=== PATIENT | male | born 1945 | race Caucasian/White ===

== ENCOUNTER → 2023-12-06 07:35 | Outpatient (REF) | payer MEDICARE, OTHER, SELFPAY | LOC: HWRAD 07:35 | PROVIDERS: ATTENDING PHYSICIAN Family Medicine | DX: Z87.891 Personal history of nicotine dependence (principal) | CPT/HCPCS: 71271 ==

== ENCOUNTER 2024-11-13 11:51 | Emergency (ER) | payer MEDICARE, OTHER, SELFPAY ==
[2024-11-13 11:52] VITALS: BP 121/73; BMI 31.2
[2024-11-13 11:54] VITALS: BP 139/92
[2024-11-13 12:00] VITALS: BP 121/73
[2024-11-13 12:22] LABS: Hematocrit 38.0 % (39.0-52.0); Hemoglobin 12.9 g/dL (13.0-18.0); Mean Corp Hgb Conc. 33.9 g/dL (33.0-37.0); Mean Corpuscular Volume 92.7 fL (80.0-94.0); Platelet Count 174 10^3/uL (130-400); Red Cell Dist. Width 14.9 % (11.5-14.5)
--- NOTE | 2024-11-13 12:22 | ED.GENMED ---
History of Present Illness
<Jeff Stockton MD, Resident - Last Filed: 11/13/24 16:18>
General
Chief Complaint: Chest Pain
Time Seen by Provider: 11/13/24 11:59
History of Present Illness
History of Present Illness:
Patient is a 79-year-old male who presents to the emergency department with complaints of right hip pain with right rib pain following a fall at [facility]. He was in his normal state of health prior to the fall when he slipped on a slick
floor at [facility] while shopping. he did not have any dizziness, shortness of breath, or chest tightness that led to the fall. He states that the fall was caused by him slipping on a slick floor. He was able to complete his shopping and proceeded to
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 Unfortunately as he continued to shop at those stores but was once a annoying right hip pain grew into a sharp acute pain that stopped him from walking easily. By the time he reached home he
was unable to make it through the front door and his had to help him get inside. Since his arrival at home he has been bedridden and has used a plan to go to the bathroom. He also has had a reduced appetite since the pain started. He has a
normal range of motion in his right lower leg and left lower leg. Normal sensation preserved throughout the legs bilaterally. Pain on any movement of the right lower leg. Patient rates his pain as a 7 out of 10.
Past History
<Jeff Stockton MD, Resident - Last Filed: 11/13/24 16:18>
Past History
ED Past Medical History: Other ( former smoker)
ED Past Surgical History: Other ( Bilateral shoulder replacement)
Patient has exhibited threatening behavior?: No
Social History
Tobacco: Former smoker
Alcohol: None
Drug: None
Personal:
Living: with family
Employment: Retired
Review of Systems
<Jeff Stockton MD, Resident - Last Filed: 11/13/24 16:18>
Review of Systems
Constitutional: Reports no symptoms
EENT: Reports no symptoms
Respiratory: Reports no symptoms
Cardiac: Reports chest pain ( along the right side of the chest around the 8th-10th ribs)
ABD/GI: Reports no symptoms
: Reports no symptoms
Musculoskeletal: Reports joint pain ( right hip pain that radiates to the medial thigh of R leg)
Skin: Reports no symptoms
Neurological: Reports no symptoms
Endocrine: Reports no symptoms
Hematologic/Lymphatic: Reports no symptoms
Psychiatric: Reports no symptoms
Phy Exam
<Jeff Stockton MD, Resident - Last Filed: 11/13/24 16:18>
General Physical Exam
General Presentation: well appearing and mild distress
General age: appears stated age
General Skin: warm and dry
General Habitus: normal and elderly
General Mental: alert
General Hydration: appears well hydrated
Cardiovascular Exam
Cardiovascular Exam: regular rate/rhythm, no edema, no gallop, no JVD and no murmur
Pulmonary Exam
Pulmonary Exam: lungs clear, no respiratory distress, no rales, chest non tender, no crackles, no rhonchi, no stridor, no cough and other (Slight wheezing on R lower lobe)
Musculoskeletal Exam
Musculoskeletal Exam: full ROM
Skin Exam
Skin Exam: normal color, warm/dry and no petechia
Psychiatric Exam
Psychiatric Exam: normal mood/affect
Scores
<Jeff Stockton MD, Resident - Last Filed: 11/13/24 16:18>
Heart Score for Chest Pain Patients
STEMI patient?: Not applicable
Course
<Jeff Stockton MD, Resident - Last Filed: 11/13/24 16:18>
Orders/Labs/Results
Orders:
Orders
11/13/24 11:59
Electrocardiogram (*1) Urgent
Reason for Study: Chest Pain
EKG- Treatment ONCE
11/13/24 12:10
Complete Blood Count/No Diff Urgent
Comprehensive Metabolic Panel Urgent
NT-proBNP Urgent
Troponin I Urgent
11/13/24 12:49
Hip, Right 2-3 Views [CR Hip - RT w/wo Pel 2-3 Vw*] Urgent
Comment:
Reason For Exam: S/P fall with R hip pain. unable to bear weight
Include a pelvis x-ray?: Yes
Ribs, Right 3 View W/PA Chest [CR Ribs-right 3 Vw W/pa Chest*] Urgent
Comment:
Reason For Exam: Fall on right side with acute right rib pain
11/13/24 12:52
Acetaminophen [Tylenol Oral Solution] 650 mg PO NOW STA
Lidocaine [Lidocaine 4% Patch] 1 patch TOPICAL NOW ONE
Apply Lidocaine patch(s) to:: Right rip area
11/13/24 12:54
Acetaminophen [Tylenol] 1,000 mg PO NOW ONE
11/13/24 14:24
Walker [Treatment- Walker] ONCE
11/13/24 14:25
Ambulate Patient-Treatment ONCE
Spirometry, Incentive [Rx Incentive Spirometry] [RESP] Urgent
Frequency: q1h while awake
11/13/24 15:20
CT Pelvis W/o Iv Contrast Urgent
Comment:
Reason For Exam: Right hip pain. XR suspicious for pelvic fracture
11/13/24 15:21
Ibuprofen [Motrin] 800 mg PO NOW ONE
Abnormal Lab Results
11/13/24
12:10
RBC 4.10 L 10^6/uL
(4.70-6.10)
Hgb 12.9 L g/dL
(13.0-18.0)
Hct 38.0 L %
(39.0-52.0)
MCH 31.5 H pg
(27.0-31.0)
RDW 14.9 H %
(11.5-14.5)
Sodium 134 L mmol/L
(135-145)
Creatinine 0.6 L mg/dL
(0.7-1.3)
Glucose 119 H mg/dl
(70-99)
11/13/24 12:10
11/13/24 12:10
Vital Signs
Initial and Last Documented VS:
Initial Vital Signs
Temp Pulse Resp BP Pulse Ox
98.4 F 70 16 121/73 98
11/13/24 11:52 11/13/24 11:52 11/13/24 11:52 11/13/24 11:52 11/13/24 11:52
Last Documented Vital Signs
Temp Pulse Resp BP Pulse Ox
98 F 71 16 118/68 100
11/13/24 14:38 11/13/24 14:38 11/13/24 14:38 11/13/24 14:38 11/13/24 14:38
<Alycia Mcbride, DO - Last Filed: 11/13/24 16:54>
Orders/Labs/Results
Orders:
Orders
11/13/24 11:59
Electrocardiogram (*1) Urgent
Reason for Study: Chest Pain
EKG- Treatment ONCE
11/13/24 12:10
Complete Blood Count/No Diff Urgent
Comprehensive Metabolic Panel Urgent
NT-proBNP Urgent
Troponin I Urgent
11/13/24 12:49
Hip, Right 2-3 Views [CR Hip - RT w/wo Pel 2-3 Vw*] Urgent
Comment:
Reason For Exam: S/P fall with R hip pain. unable to bear weight
Include a pelvis x-ray?: Yes
Ribs, Right 3 View W/PA Chest [CR Ribs-right 3 Vw W/pa Chest*] Urgent
Comment:
Reason For Exam: Fall on right side with acute right rib pain
11/13/24 12:52
Acetaminophen [Tylenol Oral Solution] 650 mg PO NOW STA
Lidocaine [Lidocaine 4% Patch] 1 patch TOPICAL NOW ONE
Apply Lidocaine patch(s) to:: Right rip area
11/13/24 12:54
Acetaminophen [Tylenol] 1,000 mg PO NOW ONE
11/13/24 14:24
Walker [Treatment- Walker] ONCE
11/13/24 14:25
Ambulate Patient-Treatment ONCE
Spirometry, Incentive [Rx Incentive Spirometry] [RESP] Urgent
Frequency: q1h while awake
11/13/24 15:20
CT Pelvis W/o Iv Contrast Urgent
Comment:
Reason For Exam: Right hip pain. XR suspicious for pelvic fracture
11/13/24 15:21
Ibuprofen [Motrin] 800 mg PO NOW ONE
Abnormal Lab Results
11/13/24
12:10
RBC 4.10 L 10^6/uL
(4.70-6.10)
Hgb 12.9 L g/dL
(13.0-18.0)
Hct 38.0 L %
(39.0-52.0)
MCH 31.5 H pg
(27.0-31.0)
RDW 14.9 H %
(11.5-14.5)
Sodium 134 L mmol/L
(135-145)
Creatinine 0.6 L mg/dL
(0.7-1.3)
Glucose 119 H mg/dl
(70-99)
11/13/24 12:10
11/13/24 12:10
Vital Signs
Initial and Last Documented VS:
Initial Vital Signs
Temp Pulse Resp BP Pulse Ox
98.4 F 70 16 121/73 98
11/13/24 11:52 11/13/24 11:52 11/13/24 11:52 11/13/24 11:52 11/13/24 11:52
Last Documented Vital Signs
Temp Pulse Resp BP Pulse Ox
98 F 71 16 118/68 100
11/13/24 14:38 11/13/24 14:38 11/13/24 14:38 11/13/24 14:38 11/13/24 14:38
Comment
Comment:
I reviewed radiology interpretation of CT pelvis IMPRESSION:
Right superior and inferior pubic rami fractures as described.
<Jeff Stockton MD, Resident - Last Filed: 11/13/24 16:18>
*Pulse Oximetry
SaO2: 98
Oxygen Mode of Delivery: Room air
Patient hypoxic: no
*Critical Care Note
Total Time (30-74mins, 75-104mins- exclusive of procedures): Not Applicable
<Jeff Sotckton MD, Resident - Last Filed: 11/13/24 16:18>
Update Note
Update Note:
Problem List:
Right-sided chest pain
right hip pain
inability to bear weight on the right side
hypertension
bilateral shoulder replacement
obesity
nicotine dependence in remission
Plan:
EKG
CBC and CMP
proBNP
troponins
x-ray right hip
x-ray right ribs
acetaminophen and lidocaine for analgesia
Differential Diagnoses:
closed fracture of the right rib
right-sided pelvic fracture
right femur fracture
pneumothorax/hemothorax
CHF
cardiac arrhythmia
Radiology:
- Hip x-ray conducted on 11/13/2024:
No radiographically demonstrable right femoral head or neck fracture. No dislocation.
Possible subtle pelvic fractures. Recommend further evaluation with follow-up CT.
- Ribs with chest x-ray conducted on 11/13/2024:
Minimally displaced anterolateral right eighth rib fracture. No pneumothorax, pleural effusion, or acute cardiopulmonary process.
- Pelvis CT without contrast conducted on 11/13/2024:
EKG: Normal sinus rhythm, normal EKG
Labs:
CBC unremarkable
CMP unremarkable
troponin 0.012 which is within normal limits
proBNP within normal limits
Updates:
patient given acetaminophen and lidocaine for analgesia. Unfortunately patient still continues to experience pain. Motrin given.
Radiology recommends follow-up CT of the pelvis in order to rule out subtle pelvic fractures. CT of the pelvis ordered for further evaluation
tentative plan is discharge with outpatient follow-up with orthopedics. patient can use a walker to ambulate. and patient should use incentive spirometry
My preliminary read of pelvic CT shows a fracture of the inferior pubic rami on the Right side. Radiology read pending.
patient should follow-up with orthopedics within 2 to 3 days after discharge. Patient should follow-up with his primary care provider within 1 week of discharge.
Patient would like to be discharged. There are no barriers that would impede the patient from being safely discharged at the present time.
ED Attending Note
<Jeff Stockton MD, Resident - Last Filed: 11/13/24 16:18>
-
Portions of this chart may have been created with voice recognition software.� Occasional wrong word or��sound alike� substitutions may have occurred due to the inherent limitations of voice recognition software.
<Alycia Mcbride DO - Last Filed: 11/13/24 16:54>
ED Attending Note
Patient seen and examined by attending physician: Yes
I performed the substantive portion of visit, reviewed & personally made and approve the management plan that is documented in note by myself or AALIYAH.: Yes
I performed a history and physical exam of patient and discussed management with resident, I reviewed resident's note and agree with documented findings and plan of care.: Yes
ED Attending Note:
79-year-old male presents to the ER for evaluation of rib and hip pain after he tripped and fell in the grocery store yesterday. No reported head strike. He is not on any blood thinners. He denies paresthesias or change in vision. He has been
eating and drinking without any difficulty. He denies any feeling of shortness of breath or abdominal discomfort. He was able to ambulate after the injury but has felt worsening pain and cramping in his hip prompting visit to the ER today. Vital
signs reviewed, patient is awake, alert, appears in no acute distress, conjunctiva pink, mucous membranes moist, heart regular rate and rhythm without murmurs or ectopy, lungs are clear to auscultation without wheezes rales or rhonchi, no abnormal
chest wall excursion, pain is reproducible on palpation over right lower lateral ribs, no crepitus, abdomen is soft and nontender, pelvis is stable to rock, mild pain on palpation along right inguinal ligament, no distal edema, 2+ DP pulses present
symmetric, GCS is 15.
I independently viewed and interpreted rib series showing isolated rib fracture rib #11, no pneumothorax. I also independently viewed and interpreted x-rays of right hip showing an inferior pubic ramus fracture only.
I discussed with patient and feeling over present at bedside my interpretation of x-rays and concern for pubic ramus fracture along with rib fracture of at least 1 if not 2 ribs. No pneumothorax. I discussed with him use of incentive spirometry,
Tylenol with ibuprofen, walker and benefit of follow-up with orthopedics. Would await formal radiology interpretation prior to discharge. Will trial ambulation with a walker. Patient and family present bedside agree with plan at current.
Discharge Plan
Departure
Patient Disposition: Home (Routine Discharge)
Date of Disposition: 11/13/24
Time of Disposition: 16:16
Patient with high blood pressure during this ER visit?: No
Discharge Problem:
Closed pelvic fracture, Fracture of rib
Instructions: How to use a walker, Fall Prevention for Older Adults
Prescriptions:
No Action
multivitamin Tablet
1 tab PO DAILY
meloxicam 15 mg tablet
15 mg PO DAILY Qty: 14 0RF
Rx Instructions:
take with food
post-op
famotidine 20 mg tablet
20 mg PO HS Qty: 30 0RF
Rx Instructions:
post-op
dexamethasone 4 mg tablet
4 mg PO BID Qty: 6 0RF
Rx Instructions:
take with food
post-op use only
mupirocin 2 % Ointment
1 applic TOPICAL BID
Patient Comments:
Patient started this treatment on 05/22/22 in the morning.
acetaminophen [Acetaminophen Extra Strength] 500 mg tablet
1,000 mg PO Q6H Qty: 30 0RF
Rx Instructions:
DO NOT exceed >4000 mg daily.
docusate sodium [Colace] 100 mg capsule
100 mg PO BID Qty: 30 0RF
sennosides [senna] 8.6 mg tablet
17.2 mg PO BID Qty: 30 0RF
aspirin 325 mg tablet
325 mg PO DAILY Qty: 30 0RF
Rx Instructions:
Take daily x4 weeks for blood clot prevention.
amlodipine 5 mg Tablet
5 mg PO DAILY Qty: 1 0RF
Rx Instructions:
HOLD if systolic blood pressure <130 while on Oxycodone.
Referrals:
Shailesh Shah MD [Active, Orthopedics] - Follow up in 1 week
Macho Gonzalez DO [Active, Family Practice] - Follow up in 1 week
Interventions
Interventions:
*Risk Screen - Suicide Last Done: 11/13/24 11:52
*General Assessment Last Done: 11/13/24 11:52
*Neglect/Abuse Screening Last Done: 11/13/24 11:52
*ED- Fall Risk Assessment Last Done: 11/13/24 11:52
ED- Cardiac Assessment Last Done: 11/13/24 12:08
Discharge Date and Time
Print Language: GREENLAND[place]
[2024-11-13 12:48] LABS: Troponin I < 0.012 ng/ml
[2024-11-13] MEDS: LIDOCAINE 4% PATCH 1 PATCH TOPICAL (13:09)
[2024-11-13] MEDS: TYLENOL 1000 MG PO (13:09)
[2024-11-13 13:13] LABS: ALT (SGPT) 19 U/L (0-50); AST (SGOT) 19 U/L (17-59); Albumin 4.2 g/dl (3.5-5.0); Alkaline Phosphatase 56 U/L (38-126); Blood Urea Nitrogen 13 mg/dl (9-20); Calcium 9.8 mg/dl (8.4-10.2); Carbon Dioxide 25 mmol/L (22-30); Chloride 105 mmol/L (98-107); Estimated Creatinine Clearance 116 ml/min; Glucose 119 mg/dl (70-99); Potassium 4.3 mmol/L (3.5-5.1); Sodium 134 mmol/L (135-145); Total Protein 6.6 g/dl (6.3-8.2); eGFR > 60.00
[2024-11-13 14:38] VITALS: BP 118/68
[2024-11-13] MEDS: MOTRIN 800 MG PO (15:38)
[2024-11-13 16:00] VITALS: BP 136/89
== END 2024-11-13 16:45 | disposition home or self-care (01) ==
LOC: EMR 11:51
PROVIDERS: EMERGENCY PHYSICIAN Emergency Medicine; FAMILY PHYSICIAN Family Medicine
DX: S22.31XA Fracture of one rib, right side, initial encounter for closed fracture (principal); S32.591A Other specified fracture of right pubis, initial encounter for closed fracture; W01.0XXA Fall on same level from slipping, tripping and stumbling without subsequent striking against object, initial encounter; Z87.891 Personal history of nicotine dependence; Z96.611 Presence of right artificial shoulder joint; Z96.612 Presence of left artificial shoulder joint; Z74.01 Bed confinement status
CPT/HCPCS: 99284; 71101; 72192; 73502; 80053; 83880; 84484; 85027; 93005